=== PATIENT | male | born 1935 ===

== ENCOUNTER 2018-07-01 08:02 | Emergency (ER) | payer MEDICARE, OTHER ==
[~2018-07-01] VITALS: Ht 175.3 cm; Wt 81.2 kg
[2018-07-01 08:10] VITALS: BP 145/76
[2018-07-01] MEDS ORDERED: PROSCAR5 MG ORAL (08:14)
[2018-07-01] MEDS ORDERED: RAPAFLO4 MG ORAL (08:14)
[2018-07-01] MEDS ORDERED: ASPIRIN81 MG ORAL (08:15)
[2018-07-01] MEDS ORDERED: CRESTOR10 M2 ORAL (08:15)
--- NOTE | 2018-07-01 08:22 | Emergency Room Report ---
History of Present Illness General Chief Complaint: Pain Source: Patient Present Illness HPI Patient presents with complaints of discomfort to the right wrist, patient pain started yesterday and has noticed increased discomfort brought the past day and a half denies any trauma pain is essentially at the base of the thumb lateral aspect of the proximal wrist area There is some associated swelling denies any fevers or chills denies any rash or erythema Allergies: Coded Allergies: No Known Allergies (Unverified , 07/01/18) Patient History Past Medical History: see triage record Pertinent Family History: none Reviewed Nursing Documentation: PMH: Agreed; PSxH: Agreed Nursing Documentation-PMH Hx Cardiac Problems: Yes - stent, knee replacement, bph Hx Hypertension: No Hx Pacemaker: No Hx Asthma: No Hx COPD: No Hx Diabetes: No Hx Cancer: No Hx Gastrointestinal Problems: No Hx Dialysis: No History Of Psychiatric Problem: No Hx Neurological Problems: No Hx Cerebrovascular Accident: No Hx Seizures: No Review of Systems All Other Systems: negative except mentioned in HPI Physical Exam Vital Signs Date Time Temp Pulse Resp B/P (MAP) Pulse Ox O2 Delivery O2 Flow Rate FiO2 07/01/18 08:04 98.2 67 18 145/76 96 Room Air 98.2 Sp02 EP Interpretation: reviewed, normal General Appearance: well appearing, no apparent distress Head: normocephalic, atraumatic Eyes: bilateral eye EOMI ENT: normal pharynx, no angioedema Neck: supple Respiratory: lungs clear Cardiovascular #1: regular rate, rhythm, no edema Gastrointestinal: non tender, soft Musculoskeletal: other - Some swelling is noted to the base of the thumb distal radius on the right side, patient's discomfort is worsened with extension of the thumb upward, also uncomfortable on palpation no obvious erythema neurovascularly intact Neurologic: alert, oriented x3 Skin: other - As above Lymphatic: no adenopathy Procedures Splinting Splinting : Consent: Verbal Pre-Made Type: Splint: thumb spica Pre-Proc Neuro Vasc Exam: normal Post-Proc Neuro Vasc Exam: normal Patient Tolerated: Well Complications: None Medical Decision Making Diagnostic Impression: Primary Impression: Arthralgia Additional Impression: DJD (degenerative joint disease) ER Course Given the patient's complaints and presentation imaging studies were obtained Multiple differentials including but not limited to septic joint, occult fracture, sprain are considered Patient's x-ray imaging shows significant DJD in the region of the patient's discomfort There is also difficulty diagnosing minor acute process given the extensive chronic findings Patient requires appropriate outpatient follow-up Splint is applied and the patient is stable for close outpatient follow-up Other X-Ray Diagnostic Results Other X-Ray Diagnostic Results : X-Ray ordered: Right wrist # of Views/Limited Vs Complete: 3 View Indication: Pain EP Interpretation: Yes Interpretation: no dislocation, no soft tissue swelling, no fractures, other - Significant arthritic changes, difficult to evaluate acute fx Impression: No acute disease Electronically Signed by: Mason Proctor DO Last Vital Signs Date Time Temp Pulse Resp B/P (MAP) Pulse Ox O2 Delivery O2 Flow Rate FiO2 07/01/18 08:10 98.2 67 18 145/76 96 Room Air 98.2 Status: improved Disposition: HOME, SELF-CARE Condition: Improved Scripts Ibuprofen* (MOTRIN*) 600 Mg Tablet 600 MG ORAL Q8H PRN for For Pain, #20 TAB 0 Refills Prov: Mason Proctor DO 07/01/18 Prednisone* (PREDNISONE*) 20 Mg Tablet 20 MG ORAL BID, #8 TAB Prov: Mason Proctor DO 07/01/18 Additional Instructions: Patient is provided with the discharge instructions notified to follow up with primary doctor in the next 2-3 days otherwise return to the er with any worsening symptoms. Please note that this report is being documented using Next audience technology. This can lead to erroneous entry secondary to incorrect interpretation by the dictating instrument. Mason Proctor DO Jul 01, 2018 08:22
[2018-07-01] MEDS ORDERED: IBUPROFEN600 MG ORAL (08:48)
[2018-07-01] MEDS ORDERED: PREDNISONE20 MG ORAL (08:48)
[2018-07-01 08:58] VITALS: BP 145/76
--- NOTE | 2018-07-01 09:05 | Diagnostic Imaging Report ---
Clinical Indication:Right wrist pain Technique: 3 views of the right wrist Comparison: None Findings: There is marked degenerative change and irregularity of the lateral intercarpal joint and the first and second carpometacarpal joints, with in particular marked deformity of the trapezoid and trapezium. Numerous small ossific densities are seen surrounding the first and second carpometacarpal joints, may be small chronic bone fragments or foci of heterotopic ossification. Monitors more small ossific densities are also seen in the region of the triquetrum. There is equivocal minimal widening of the space between the scaphoid and the lunate. There is some remodeling of the distal radioulnar joint. No definite acute fractures. No dislocations. 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 Proctor
== END 2018-07-01 09:00 | disposition home or self-care (01) ==
LOC: EMR 08:33
DX: M25.541 Pain in joints of right hand (principal); M19.90 Unspecified osteoarthritis, unspecified site; Z96.659 Presence of unspecified artificial knee joint; Z95.5 Presence of coronary angioplasty implant and graft
CPT/HCPCS: 29130; 99283